=== PATIENT | female | born 1965 ===

== ENCOUNTER 2020-04-26 09:17 | Inpatient (IN) | payer OTHER ==
[~2020-04-26] VITALS: Ht 172.7 cm; Wt 120.0 kg
[~2020-04-26 09:17] MED LIST: ASPIRIN PO; LOSART PO; TOPROL XL50 M1 PO
[2020-04-27] MEDS ORDERED: LOSARTAN POTASS50 MG (09:39)
[2020-04-27] MEDS ORDERED: ECOTRIN81 MG (09:40)
== END 2020-05-02 15:46 | disposition home or self-care (01) | DRG 744 ==
LOC: CIR.AMB 09:17 → ICU 16:10 → O/R 16:10 → ICU 04-27 14:48 → MEDI 04-30 18:25
PROVIDERS: ADMIT Obstetrics & Gynecology Obstetrics; ATTEND Obstetrics & Gynecology Obstetrics
PROC: 5A1945Z Respiratory Ventilation, 24-96 Consecutive Hours (ICD-10-PCS; 2020-04-26)
PROC: 0BH17EZ Insertion of Endotracheal Airway into Trachea, Via Natural or Artificial Opening (ICD-10-PCS; 2020-04-26)
PROC: 0UDB8ZX Extraction of Endometrium, Via Natural or Artificial Opening Endoscopic, Diagnostic (ICD-10-PCS; principal; 2020-04-26 13:30)
PROC: B24BYZZ Ultrasonography of Heart with Aorta using Other Contrast (ICD-10-PCS; 2020-04-27)
PROC: 3E0F7SF Introduction of Other Gas into Respiratory Tract, Via Natural or Artificial Opening (ICD-10-PCS; 2020-04-29)
PROC: 4A12X4Z Monitoring of Cardiac Electrical Activity, External Approach (ICD-10-PCS; 2020-04-30)
DX: N85.8 Other specified noninflammatory disorders of uterus (principal); J95.821 Acute postprocedural respiratory failure; I16.1 Hypertensive emergency; Z68.42 Body mass index [BMI] 45.0-49.9, adult; Y83.8 Other surgical procedures as the cause of abnormal reaction of the patient, or of later complication, without mention of misadventure at the time of the procedure; I10 Essential (primary) hypertension; E66.01 Morbid (severe) obesity due to excess calories; Z86.73 Personal history of transient ischemic attack (TIA), and cerebral infarction without residual deficits